=== PATIENT | male | born 1980 | race Caucasian/White ===

== ENCOUNTER → 2025-10-08 10:15 | Outpatient (CLI) | payer OTHER, SELFPAY ==
--- NOTE | 2025-10-08 10:21 | DI.RAD.S_ITS ---
PROCEDURE: XR CERVICAL SPINE 2V OR 3V INDICATIONS: Unspecified inflammatory spondylopathy, cervical region TECHNIQUE: 3 view(s) of the cervical spine were acquired. COMPARISON: None. FINDINGS: Bones: No fractures or dislocations to the C7 level. The lateral masses of C1 appear intact on the odontoid view. No suspicious bony lesions. Soft tissues: No prevertebral soft tissue swelling. IMPRESSION: No significant degenerative changes. Straightening of the normal cervical lordosis peer Dictated by: Eber Sr M.D. on 10/09/2025 at 13:52 Approved by: Eber Sr M.D. on 10/09/2025 at 13:53
== END ==
LOC: RAD 10:19
PROVIDERS: PCP Physician Assistant; Referring Provider Chiropractor; Visit Provider Chiropractor
DX: M46.92 Unspecified inflammatory spondylopathy, cervical region (principal)
CPT/HCPCS: 72040